=== PATIENT | male | born 2000 | race Hispanic/Latino ===

== ENCOUNTER 2021-06-10 02:50 | Emergency (ER) | payer OTHER, SELFPAY ==
[2021-06-10] MEDS ORDERED: Ibuprofen 200 MG TAB ONE (03:42)
[2021-06-10] MEDS ORDERED: HYDROcodone/Acetaminophen 5/325 mg Tablet ONE (03:43)
[2021-06-10] MEDS ORDERED: Silver Sulfadiazine 50 GM TUBE ONE (03:43)
== END 2021-06-10 04:00 | disposition home or self-care (01) ==
LOC: CSHERS 02:50
DX: T23.201A Burn of second degree of right hand, unspecified site, initial encounter (principal); W39.XXXA Discharge of firework, initial encounter
CPT/HCPCS: 16020

== ENCOUNTER 2022-05-06 16:55 | Emergency (ER) | payer SELFPAY ==
[2022-05-06] MEDS ORDERED: cefTRIAXone\\ROCEPHIN 500 MG VIAL ONE (17:55)
[2022-05-06] MEDS ORDERED: Lidocaine 1% (PF) 30 ML VIAL ONE (17:56)
[2022-05-06 18:04] LABS: Bilirubin Neg (Negative); Blood, Urine 10 (Negative); Clarity Cloudy (Clear); Glucose, Urine (Dipstick) Normal (Negative); Ketone, Urine Negative (Negative); Leukocyte 500 (Negative); Nitrite Negative (Negative); Protein, Urine (Dipstick) 30 mg/dl (Neg-Trace)
[2022-05-06 18:09] LABS: Bacteria/HPF Rare-Few HPF (None Seen); Squamous Epithelial 0-3 HPF (0-3); WBC/HPF Greater Than 50 HPF (0-3)
[2022-05-07 10:26] LABS: Chlam.trachomatis by PCR,Urine DETECTED (NotDetected)
== END 2022-05-06 18:00 | disposition home or self-care (01) ==
LOC: CSHERS 16:55
DX: N34.2 Other urethritis (principal)
CPT/HCPCS: 81003; 81015; 87086; 87491; 87591; 96374; J0696; J2001